=== PATIENT | female | born 1990 | race Caucasian/White ===

== ENCOUNTER 2017-03-25 20:51 | Emergency (ER) | payer OTHER ==
[~2017-03-25] VITALS: Ht 170.2 cm; Wt 57.9 kg
[~2017-03-25 20:51] MED LIST: FERR325T51 PO; OXYC2.5T3 PO; SERT50TA PO; bcp PO
[2017-03-25 20:53] VITALS: TEMP 36.8; Ht 170.2 cm; Wt 57.9 kg
[2017-03-25] MEDS ORDERED: LEVO1IUD2 INT UTER (22:26)
[2017-03-25 23:07] LABS: BASO % 0.4 %; BASO ABS # 0.05 K/uL (0-0.2); EOS % 6.2 %; HEMATOCRIT 41.8 % (37-47); HEMOGLOBIN 14.2 g/dL (12.0-16.0); IG# 0.02 K/uL (0.00-0.02); LYMPH % 33.2 %; LYMPH ABS # 3.74 K/uL (1.2-3.4); MEAN CELL VOLUME 90.5 fL (80-100); MEAN CORPUSCULAR HEMOGLOBIN 30.7 pg (25-34); MEAN PLATELET VOLUME 11.1 fL (7.4-10.4); MONO % 7.4 %; MONO ABS # 0.83 K/uL (0.11-0.59); NEUT % 52.6 %; NEUT ABS # 5.94 K/uL (1.4-6.5); PLATELET COUNT 263 K/uL (130-400); RED CELL DISTRIBUTION WIDTH CV 13.7 % (11.5-14.5); RED CELL DISTRIBUTION WIDTH SD 45.5 fL (36.4-46.3); WHITE BLOOD COUNT 11.28 K/uL (4.8-10.8)
[2017-03-25 23:14] LABS: ALBUMIN 3.8 gm/dl (3.4-5.0); CALCIUM 9.5 mg/dl (8.5-10.1); CREATININE 0.66 mg/dl (0.60-1.20); POTASSIUM 3.2 mmol/L (3.5-5.1)
[2017-03-25 23:17] LABS: TOTAL PROTEIN 7.5 gm/dl (6.4-8.2)
--- NOTE | 2017-03-26 01:06 | EMERGENCY ROOM VISIT NOTE ---
History First contact with patient: 22:14 Chief Complaint: ABDOMINAL PAIN Stated Complaint: STOMACH AND SIDE PAINS Nursing Triage Summary: Pt complains of right upper and lower abdominal pain for 4 days. +nausea History of Present Illness The patient is a 26 year old female who presents to the Emergency Room with complaints of 3-4 day long history of abdominal pain. She states the pain is intermittent, worse with movement or stress, and improves with rest. She describes the pain as a stinging sensation in the RLQ, and states it has remained the same for the past 3-4 days, not improving or worsening. She does have history of oophorectomy related to ovarian cysts, but does not remember which ovary was removed. She does report history of ovarian cysts, but this feels differently. The pain is not affected by food or drink. She denies fever, chills, nausea, vomiting, diarrhea, constipation. Bowel movements have been normal. Her LMP was 02/06/17-02/10/17, but she does have a mirena. The patient is sexually active. She did contact her software development project manager, but was unable to be seen until April 13. She states she did not want to wait that long, so came here for evaluation. Review of Systems A complete 10 point review of systems was reviewed with the patient with pertinent positives and negatives as per history of present illness. All else were negative. Past Medical/Surgical History Unilateral oophorectomy Family History Diabetes mellitus FH: cancer Hypertension Social History Smoking Status: Current Some Day Smoker Alcohol Use: occasionally Marital Status: Housing Status: lives with family Occupation Status: employed Current/Historical Medications Scheduled Levonorgestrel (Iud) (Mirena), 20 MCG INT UTER UD Physical Exam Vital Signs Date Time Temp Pulse Resp B/P (MAP) Pulse Ox O2 Delivery O2 Flow Rate FiO2 03/26/17 00:22 71 18 113/57 97 Room Air 03/25/17 20:53 36.8 77 16 147/96 98 Room Air Physical Exam VITALS: Vitals are noted on the nurse's note and reviewed by myself. Vital signs stable. GENERAL: This is a 26 year old white female, in no acute distress, nondiaphoretic, well-developed well-nourished. SKIN: The skin was without rashes, erythema, edema, or bruising. There is no tenting of the skin. Capillary reflex less than 2 seconds. HEAD: Normocephalic atraumatic. EARS: External auditory canals clear, tympanic membranes pearly bailon without erythema or effusion bilaterally. EYES: Pupils equal round and reactive to light and accommodation. Conjunctivae without injection, sclerae without icterus. Extraocular movements intact. NOSE: Patent, turbinates without inflammation or discharge. No sinus tenderness. MOUTH: Mucous membranes moist. Tonsils are not enlarged. Pharynx without erythema or exudate. Uvula midline. Airway patent. Tongue does not deviate. NECK: Supple without nuchal rigidity. No lymphadenopathy. No thyromegaly. Cervical spine is nontender. No JVD. HEART: Regular rate and rhythm without murmurs gallops or rubs. LUNGS: Clear to auscultation bilaterally without wheezes, rales or rhonchi. No dullness to percussion. No retractions or accessory muscle use. ABDOMEN: Positive bowel sounds x 4. Normal tympanic percussion. Tenderness in the lower abdomen, R>L. Soft, without masses or organomegaly. Troncoso sign negative. No guarding or rebound tenderness. No CVA tenderness. MUSCULOSKELETAL: No muscle atrophy, erythema, or edema noted. Full range of motion without joint tenderness in all extremities. No tenderness to palpation. Normal gait. Strength 5/5 throughout. NEURO: Patient was alert and oriented to person place and time. Normal sensation to light and sharp touch. Deep tendon reflexes 2+ throughout. No focal neurological deficits. Medical Decision & Procedures ER Provider Diagnostic Interpretation: US pelvis and appendix, interpreted by myself and statrad: IUD present and in place. Small amount of fluid in the endometrial cavity. No complex lesion or torsion of the left ovary. Right oophorectomy. Appendix not visualized. Laboratory Results 03/25/17 22:38 Red Blood Count 4.62, Mean Corpuscular Volume 90.5, Mean Corpuscular Hemoglobin 30.7, Mean Corpuscular Hemoglobin Concent 34.0, Mean Platelet Volume 11.1, Neutrophils (%) (Auto) 52.6, Lymphocytes (%) (Auto) 33.2, Monocytes (%) (Auto) 7.4, Eosinophils (%) (Auto) 6.2, Basophils (%) (Auto) 0.4, Neutrophils # (Auto) 5.94, Lymphocytes # (Auto) 3.74, Monocytes # (Auto) 0.83, Eosinophils # (Auto) 0.70, Basophils # (Auto) 0.05 03/25/17 22:38 Test 03/25/17 22:38 White Blood Count 11.28 K/uL (4.8-10.8) Red Blood Count 4.62 M/uL (4.2-5.4) Hemoglobin 14.2 g/dL (12.0-16.0) Hematocrit 41.8 % (37-47) Mean Corpuscular Volume 90.5 fL (80-100) Mean Corpuscular Hemoglobin 30.7 pg (25-34) Mean Corpuscular Hemoglobin Concent 34.0 g/dl (32-36) Platelet Count 263 K/uL (130-400) Mean Platelet Volume 11.1 fL (7.4-10.4) Neutrophils (%) (Auto) 52.6 % Lymphocytes (%) (Auto) 33.2 % Monocytes (%) (Auto) 7.4 % Eosinophils (%) (Auto) 6.2 % Basophils (%) (Auto) 0.4 % Neutrophils # (Auto) 5.94 K/uL (1.4-6.5) Lymphocytes # (Auto) 3.74 K/uL (1.2-3.4) Monocytes # (Auto) 0.83 K/uL (0.11-0.59) Eosinophils # (Auto) 0.70 K/uL (0-0.5) Basophils # (Auto) 0.05 K/uL (0-0.2) RDW Standard Deviation 45.5 fL (36.4-46.3) RDW Coefficient of Variation 13.7 % (11.5-14.5) Immature Granulocyte % (Auto) 0.2 % Immature Granulocyte # (Auto) 0.02 K/uL (0.00-0.02) Anion Gap 8.0 mmol/L (3-11) Est Creatinine Clear Calc Drug Dose 118.1 ml/min Estimated GFR () 141.3 Estimated GFR (Non- 121.9 BUN/Creatinine Ratio 12.5 (10-20) Calcium Level 9.5 mg/dl (8.5-10.1) Total Bilirubin 0.5 mg/dl (0.2-1) Aspartate Amino Transf (AST/SGOT) 15 U/L (15-37) Alanine Aminotransferase (ALT/SGPT) 11 U/L (12-78) Alkaline Phosphatase 46 U/L (45-117) Total Protein 7.5 gm/dl (6.4-8.2) Albumin 3.8 gm/dl (3.4-5.0) Globulin 3.7 gm/dl (2.5-4.0) Albumin/Globulin Ratio 1.0 (0.9-2) Lipase 147 U/L (73-393) ED Course The patient was seen and evaluated as above. IV access obtained and labs drawn. Urine dipstick and test ordered and performed. I discussed potential workup with the patient at bedside. She is uncertain which ovary was removed and is concerned for possible gynecological problem vs. appendicitis. The patient is relatively thin, so decision made collectively to perform US vs. CT scan. US results reviewed. I discussed findings with the patient at bedside. I recommended CT scan to r/o appendicitis. The patient declines, despite discussion regarding risks associated with not performing scan and possible undiagnosed, untreated appendicitis. Discharge instructions reviewed, the patient was discharged home in good condition. Medical Decision This 26 year old female patient presents to the ED today complaining of intermittent pain x3-4 days. The pain has not changed in intensity, and has been consistent over the past few days. She denies any infectious symptoms including fever, but does report history of ovarian cysts. Initial UA was negative for blood or obvious signs of infection, so us pelvis and appendix ordered and performed. This test was reviewed with no obvious cause for the patient's symptoms. In the setting of the negative ultrasound, as well as slightly elevated WBC count, I did recommend CT scan of the abd/pelvis to r/o appendicitis. The patient declines this test as she has to sleep so she can get her children up and ready for school in the morning. I did discuss risks associated with refusing this test, including appendicitis, abscess, infection, sepsis, and and the patient verbalizes understanding and continues to decline further testing. She was given strict return precautions and discharge instructions. Etiologies such as appendicitis, diverticulitis, obstruction, inflammatory bowel disease, renal colic, PUD, biliary pathology, pancreatitis, mesenteric ischemia, aortic pathology, infections, genitourinary, nephrolithiasis, ovarian torsion, ovarian cyst, UTI, perforated viscus, as well as others were entertained. Impression Primary Impression: Right lower quadrant abdominal pain Departure Information Dispostion Home / Self-Care Condition GOOD Referrals No Doctor, Assigned (PCP) Patient Instructions ED Abdominal Pain Unkn Cause, [facility] Additional Instructions You have been treated in the Emergency Department your Abdominal Pain. Laboratory studies and ultrasound of the pelvis and appendix were ordered, but were unclear as to the exact cause of your pain. As discussed, I did recommend a CT scan of the abdomen to rule out appendicitis, with the slightly elevated WBC count, however you did decline this test here in the ED. I do recommend close follow-up outpatient with your PCP in 1-2 days as well as return to the ED for any worsening symptoms or systemic symptoms. For pain control, you can use the following [id number] medicines (if >12 yo): Ibuprofen(Motrin, Advil) may be used for fever or pain. Use 600mg every six hours as needed. Take with food. Avoid using more than 2400mg in a 24 hour period. Do not use 2400mg per day for more than three consecutive days without physician direction. Prolonged inappropriate use can lead to stomach upset or ulcers. (AND/OR) Acetaminophen(Tylenol) may be used for fever or pain. Use 1000mg every six hours as needed. Avoid using more than 3000mg in a 24 hour period. Drink plenty of water and stay well hydrated. As with any trip to the Emergency Department, you should follow-up with your Primary Care Provider from today's visit. Return to the emergency department if your symptoms persist despite treatment plan outlined above or if the following symptoms occur: increased fevers, chills , worsening nausea/vomiting, blood in your stool or urine.
[2017-03-26 01:11] VITALS: BP 121/64; PULSE 79; O2SAT 98
--- NOTE | 2017-03-26 06:56 | DIAGNOSTIC IMAGING REPORT ---
EXAMINATION: PELVIC ULTRASOUND (transabdominal and endovaginal scanning) CLINICAL HISTORY: RLQ abdominal pain COMPARISON STUDY: 02/12/2015 FINDINGS: The uterus measured 8 x 3.6 x 5.4 cm. And IUD is visualized within the endometrial cavity.. The endometrial stripe measured 4 mm. There is minimal fluid within the endometrial canal.. The right ovary is surgically absent. The left ovary measured 44 x 24 x 35 mm. There is no ultrasonographic evidence of ovarian torsion. It should be noted that ovarian torsion can be present with normal Doppler ultrasonographic findings. There was no evidence of pathologic free pelvic fluid. IMPRESSION: 1. An IUD is visualized within the endometrial cavity 2. Small amount of fluid within the endometrial cavity 3. Ultrasonographically normal left ovary 4. Surgically absent right ovary Electronically signed by: Ricardo Root M.D. 03/26/2017 6:55 AM Dictated Date/Time: 03/26/2017 6:54 AM
--- NOTE | 2017-03-26 07:04 | DIAGNOSTIC IMAGING REPORT ---
APPENDIX ULTRASOUND HISTORY: Right lower quadrant abdominal pain. COMPARISON: None. FINDINGS: Transabdominal scanning of the right lower quadrant was performed. The appendix was not identified. There are no fluid collections or masses within the right lower quadrant. IMPRESSION: The appendix was not identified. Electronically signed by: Giovanni Koch M.D. 03/26/2017 7:02 AM Dictated Date/Time: 03/26/2017 7:02 AM
== END 2017-03-26 01:12 | disposition home or self-care (01) ==
LOC: C.EDB 20:52 → C.EDC 03-26 01:12
DX: R10.31 Right lower quadrant pain (principal); F17.200 Nicotine dependence, unspecified, uncomplicated; Z90.721 Acquired absence of ovaries, unilateral; Z83.3 Family history of diabetes mellitus; Z82.49 Family history of ischemic heart disease and other diseases of the circulatory system; Z97.5 Presence of (intrauterine) contraceptive device

== ENCOUNTER → 2017-03-26 | Outpatient (CLI) | payer OTHER ==
[~2017-03-26] MED LIST changes: -FERR325T51 PO; +LEVO1IUD2 INT UTER; +OPTIRAY 320 IV PRN; -OXYC2.5T3 PO; -SERT50TA PO; -bcp PO
--- NOTE | 2017-03-26 14:13 | DIAGNOSTIC IMAGING REPORT ---
CT OF THE ABDOMEN AND PELVIS WITH CONTRAST CLINICAL HISTORY: Right lower quadrant abdominal pain. Evaluate for acute appendicitis. COMPARISON STUDY: Appendix ultrasound and pelvic ultrasound March 25, 2017. TECHNIQUE: Following IV administration of 119 mL of Optiray-320, axial images of the abdomen and pelvis were obtained from the lung bases to the proximal femurs. Images were reviewed in the axial, sagittal, and coronal planes. IV contrast was administered without complication. A dose lowering technique was utilized adhering to the principles of ALARA. Oral contrast was administered. CT DOSE: 291.01 mGy.cm FINDINGS: A 5 mm lateral segment hepatic lesion is too small to characterize but is likely benign. The spleen, adrenal glands, kidneys and pancreas are normal. There is no biliary or pancreatic ductal dilatation. There is no peripancreatic or pericholecystic infiltration. There is no hydronephrosis or Starkweather ureter. Intrauterine device is in place. The caliber and wall thickness of small and large bowel are normal. The appendix is normal. Trace fluid within the pelvis is likely physiologic. No pneumatosis, free air or portal venous gas is present. There is a moderate amount of stool within the rectum. There is no evidence for a bowel obstruction. No suspicious osseous lesions are present. IMPRESSION: 1. No acute process within the abdomen or pelvis. Normal appendix. 2. Moderate amount stool within the rectum. No evidence for a bowel obstruction. 3. Small amount of fluid within the pelvis which is likely physiologic. 4. Intrauterine device in place. Electronically signed by: Rich Reed M.D. 03/26/2017 2:11 PM Dictated Date/Time: 03/26/2017 1:57 PM
== END | disposition home or self-care (01) ==
LOC: C.CTS 11:49
PROVIDERS: ATTEND Physician Assistant
DX: R10.31 Right lower quadrant pain (principal)

== ENCOUNTER 2023-01-21 09:57 | Inpatient (IN) ==
[2023-01-21] MEDS ORDERED: LIDOCAINE 1% LOCAL 20 ML VIAL INFIL PRN (10:26)
[2023-01-21] MEDS ORDERED: OXYTOCIN 30 UNITS/NSS 30 UNITS/500 ML BAG IV PRN ×3 (10:26→19:50)
[2023-01-21 11:31] LABS: Hematocrit (blood only) 37.9 % (37.0-47.0); Hemoglobin 12.9 g/dl (12.0-16.0); Mean Corpuscular Hemoglobin 29.7 pg (25.0-34.0); Mean Corpuscular Volume 87.3 fL (80.0-100.0); Mean Platelet Volume 13.5 fL (9.4-12.4); Platelet Count 125 K/uL (130-400); RDW Coefficient of Variation 13.9 % (11.5-14.5); RDW Standard Deviation 44.4 fL (36.4-46.3); Red Blood Count 4.34 M/uL (4.20-5.40); White Blood Count 10.24 K/ul (4.8-10.8)
--- NOTE | 2023-01-21 12:06 | History & Physical Report ---
Date of Service January 21, 2023 Assessment & Plan Admission and Anticipated Discharge Date Admission Date: January 21, 2023 History of Present Illness Chief Complaint: induction of labor Primary Care Provider: Mario Alberto Sellers MD 32 F [id number] at 39 weeks admitted for induction of labor for gestational diabetes on insulin. Blood sugars have been well controlled. GBS is negative. Allergies Allergy/AdvReac Type Severity Reaction Status Date / Time minocycline Allergy Unknown headaches; Verified 01/21/23 10:20 caused a pseudotumor cerebri cat dander Allergy Sneezing Verified 01/21/23 10:20 naproxen Allergy Headache Verified 01/21/23 10:20 Home Medications Medication Instructions Recorded Confirmed Type vits no.124-ferrous fum 1 tab PO DAILY 11/03/18 01/21/23 History 27 mg iron-folic acid 800 mcg tablet ( Vitamin) insulin detemir U-100 100 unit/mL 10 unit subcut DAILY 12/29/22 01/21/23 History (3 mL) subcutaneous pen (Levemir FlexPen) Patient History Medical History Gestational diabetes mellitus (GDM) insulin (spontaneous vaginal delivery) 2010,2012,2018 Abnormal cervical Papanicolaou smear Depression with anxiety Miscarriage (~2008) Pelvic pain Ovarian cyst Surgical History History of dental surgery H/O colposcopy with cervical biopsy History of right salpingo-oophorectomy Social History Smoking Status: Never smoker Second Hand Exposure: No; Do You Dip or Chew Tobacco: No; Hx Alcohol Use: No Hx Substance Use: No Preferred Language: [place] Communication Ability: Effective Court Clerk Required: No Beliefs That Will Affect Care: None marital status: Current Living Situation: Spouse Current Living Situation Comment: and three kids Other Information That Helps Us Care for You: No Feels Safe at Home: Yes Safety Concerns: Feels Safe At This Time Assistive Devices: Glasses 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/colposcopy Review of Systems All systems reviewed & are unremarkable except as noted in HPI & below Physical Exam Constitutional: WD/WN, vitals as above Eyes: PERRL, conjunctivae normal, anicteric sclerae Respiratory: normal respiratory effort, lungs clear to auscultation Cardiovascular: RRR, no murmur, no edema Musculoskeletal: Extremities: extremities normal to inspection Skin: no rashes, warm and dry Neurologic: patellar DTR's 2+ bilat, sensation intact Psychiatric: A+Ox3, euthymic affect Genitourinary: no vaginal lesions, no adnexal mass Manual OB Exam: + cervical dilation 2 cm and 3 cm, + cervical effacement 50% and + station high Cervix firm/posterior. EFW 7-8 lbs. Results & Data Vital Signs (Past 12 Hours) Vital Signs Temp Pulse Resp BP 01/21/23 10:39 90 112/75 01/21/23 10:18 36.8 C 18 01/21/23 10:08 109 H 152/86 H Laboratory Results Laboratory Results - last 48 hr 01/21/23 01/21/23 10:52 11:10 WBC 10.24 RBC 4.34 Hgb 12.9 Hct 37.9 MCV 87.3 MCH 29.7 MCHC 34.0 RDW Std Deviation 44.4 RDW Coeff of Flaco 13.9 Plt Count 125 L MPV 13.5 H POC Glucose 79 Code Status & VTE Plan VTE Prophylaxis Plan VTE Prophylaxis will be ordered: No Monitoring External Monitor Cat 1
[2023-01-21] MEDS: LACTATED RINGER'S 1,000 ML IV PRN ×2 (12:18→15:42)
--- OUTSIDE RECORDS SUMMARY | 2023-01-21 12:44 | External Medical Summary | Summary of Care ---
Author Name Unknown Organization [facility] Address [address] [facility] [place] [address] Phone [phone] Care Team Providers Care Director Private Music Therapy Agency Name Role Phone Geovanna Guadarrama MD Primary Care Prov ider Encounter Details Date Type Department Care Team (Late st Contact Info) Description 01/19/2023 Telephone [facility] [address] [place] [phone] Lester Hernandez MD [address] [place] [address] Allergies Active Allergy Reactions Criticality Noted Date Comments Cat Dander 10/07/2007 Minocycline High 09/19/2014 pseudotumor cerebri (2014) Naproxen Sodium 12/13/2017 Blurred vision headache documented as of this encounter (statuses as of 01/19/2023) Medications Medication Sig Dispensed Refills Start Date End Date Status Plus 27-1 MG Oral Tablet Take 1 Tablet by mouth in the morning. 100 Tablet 3 06/11/2022 Active Clindamycin Phosphate 1 % External GelIndications:Acne scarring,Acne vulgaris Apply as spot treatment to acne prone areas on face/neck/chest 2x daily 60 g 2 08/31/2022 Active UserVoiceTouch Verio Flex System w/Device Kit Use to test blood sugars 4 times daily (fasting, 1 hour after breakfast, lunch, and dinner) 1 Kit 0 11/06/2022 Active OneTouch Verio In Vitro Strip (Glucose Blood)Indications:Di et controlled gestational diabetes mellitus (GDM) in third trimester Use to test blood sugars 4 times daily (fasting, 1 hour after breakfast, lunch, and dinner) 200 Strip 6 11/12/2022 Active OneTouch Delica Lancets 30GIndications:Insul in controlled gestational diabetes mellitus (GDM) in third trimester Use to test blood sugars 4 times daily (fasting, 1 hour after breakfast, lunch, and dinner) 200 Each 6 12/10/2022 Active Levemir FlexTouch 100 UNIT/ML Subcutaneous Solution Pen-injector (Insulin Detemir)Indications: Insulin controlled gestational diabetes mellitus (GDM) in third trimester Inject 10 Units under the skin in the morning. 15 mL 2 12/10/2022 Active BD Pen Needle Mini U/F 31G X 5 MM (Insulin Pen Needle)Indications:I nsulin controlled gestational diabetes mellitus (GDM) in third trimester Use with insulin pen to inject insulin 200 Each 2 12/10/2022 Active documented as of this encounter (statuses as of 01/19/2023) Active Problems Problem Noted Date Diagnosed Date Insulin controlled gestation al diabetes mellitus (GDM) in third trimester 11/06/2022 Overview: Diagnosed at 27 weeks Nutrition consult ordered / completed earlier today 11/12/2022 Has UserVoiceTouch glucometer & supplies Lab Results Component Value Date/Time 50-G GESTATIONAL GLUCOSE, 1 HOUR - [facility] 179 (H) 11/03/2022 09:28 AM 100-G GESTATIONAL GLUCOSE, 1 HOUR - [facility] 185 (H) 11/05/2022 08:57 AM 100-G GESTATIONAL GLUCOSE, 2 HOUR - [facility] 158 (H) 11/05/2022 09:57 AM 100-G GESTATIONAL GLUCOSE, 3 HOUR - [facility] 109 11/05/2022 10:57 AM 100-G GESTATIONAL GLUCOSE, FASTING - [facility] 92 11/05/2022 07:53 AM 11/12/22: MFM ADAPT consult complete. Enrolled in Current Health. Instructions provided to report blood sugars each week for MFM review 11/18/22: RPM Stable overall; continue diet controlled 11/23/22: RPM reviewed. Stable overall. However, patient concerned that sugars have been increasing and reports symptoms. SM offering ADAPT follow-up to discuss medications. 11/25/22: ADAPT complete; elevated breakfast value due to cereal; discussed dietary changes; continue diet controlled 11/27/22: RPM Stable; continue diet controlled 12/03/22- Elevated sugars msg sent to COMMERCIAL LENDING ASSISTANT 12/03/22: RPM reviewed. Yesterday's readings all elevated, but today's readings are good. Will review again next week --KW 12/04/22: RPM some PP elevations; request food diary 12/08/22- PP elevations msg sent to COMMERCIAL LENDING ASSISTANT 12/08/22: recommend ADAPT FU for medication management; elevated PP values 12/08/22: ADAPT visit scheduled on 12/10/2022 12/10/22: ADAPT visit today. Patient had visit with nutrition yesterday. Pt states elevated PP's despite adhering to diet. Agreeable to starting AM dose of insulin. Levemir 10 units SQ prior to breakfast. Will review BG next week and adjust as needed. --KW 12/11/22: Reports started insulin today 12/17/22- stable 12/24/22-stable 01/01/23- stable 01/07/23- stable 01/15/23- stable Last Assessment & Plan: Working with ADAPT; recently started insulin. Anxiety during 11/03/2022 Overview: No meds - prior Cymbalta Family hx of melanoma 08/31/2022 Overview: Grandmother and aunt Supervision of high risk in third trim izzy 07/07/2022 Overview: ?bilobed placenta seen on u/s at 37w PTSD (post-traumatic stress disorder) 10/23/2021 Moderately severe recurrent major depression 02/2021 JENNIFER (generalized anxiety disorder) 10/23/2021 Breast mass, right 08/19/2021 History of abnormal cervical Pap smear 9 Overview: 03/2018- Pap LGSIL +HR HPV, found in early Family history of cardiac arrest 12/30/2017 Overview: Her mother at age 41, unknown etiology Acne 05/15/2014 ADVANCE DIRECTIVE INFORMATION 04/15/2012 Overview: No, Advance Directive brochure offered, patient declined. Allergic rhinitis 10/07/2007 Estimated Date of Delivery Comme nts Yes 01/28/2023 Based on last me nstrual period of 04/23/2022 (Exact Date) documented as of this encounter (statuses as of 01/19/2023) Resolved Problems Problem Noted Date Diagnosed Date Resolved Date LGA (large for gestational a ge) fetus affecting management of mother 12/25/2022 Overview: 91% with 33 completed weeks gestation 12/10/2022 12/25/2022 Supervision of high risk pre gnancy in third trimester 11/12/2022 11/27/2022 with 29 completed weeks gestation 11/12/2022 11/27/2022 Carrier of group B Streptococcus 11/02/2018 01/04/2019 Overview: +RV culture Renal pelviectasis 08/11/2018 Overview: renal pelviectasis seen on u/s for missed anatomy (at 25w). "Mild fullness of the renal pelvis, bilaterally. Consider follow-up ultrasound. Will get f/u sono locally at 34-36wks @ 36wks- Right renal pelvis dilated at 6.5mm; left normal. MFM reports >7mm as abnormal. Pt aware to make title specialist aware of findings after delivery. Supervision of other normal , antepartum 03/30/2018 11/25/2018 Overview: Problem Action Taken Date entered Entered by Date resolved Nutrition Provided due date letter for pt to attend WIC 03/30/2018 Analisa Alvarado, RN 03/30/2018 Problem Action Taken Date entered Entered by Date resolved Current needs or questions Patient denies having any current needs or questions 04/27/2018 Kennedi Gomez RN 04/27/2018 Problem Action Taken Date entered Entered by Date resolved Current needs or questions Patient denies having any current needs or questions 05/25/2018 Kennedi Gomez RN 05/25/2018 Problem Action Taken Date entered Entered by Date resolved Current needs or questions Patient denies having any current needs or questions 06/29/2018 Kennedi Gomez RN 06/29/2018 Problem Action Taken Date entered Entered by Date resolved Headache Increase fluids(non-caffeinated) Take 2 Tylenol according to the directions. Do not exceed 3 grams (3000mg) in 24 hours If persistent or severe, call your provider 07/27/2018 Analisa Alvarado RN 07/27/2018 Problem Action Taken Date entered Entered by Date resolved 3rd trimester 3rd trimeseter questions/education done 08/24/2018 Barbara Araujo RN 08/24/18 Breast feeding Pt plans on breast feeding-breast pump form given-will bring back with her to next visit with her coice 08/24/2018 Barbara Araujo RN 08/24/18 Problem Action Taken Date entered Entered by Date resolved Breast Pump Form completed and faxed to [employer] 09/07/2018 Barbara Araujo RN 09/07/18 Problem Action Taken Date entered Entered by Date resolved Pelvic pain or discomfort/General discomfort Reviewed comfort measures w/pt. Pt discussed w/provider 10/05/2018 Analisa Alvarado RN 10/05/2018 10/05/2018 Tdap Vaccine administered per clinic protocol. Pt given VIS(vaccine information sheet) Analisa Alvarado RN Problem Action Taken Date entered Entered by Date resolved Current needs or questions Patient denies having any current needs or questions 10/27/2018 Analisa Alvarado RN 10/27/2018 Pseudotumor cerebri 09/19/2014 10/17/19 16 Overview: [facility] (2015) Encounter for supervision of other normal 03/17/2012 10/13/2012 Overview: Patient given flu vaccine. 04/27/2012 Carlyn La RN Uterine size <dates @29wks- growth sono 1340gm (75%); FRIDA 23.4 ICD-10 update of inactive term Subchorionic hematoma 03/17/20122012 Overview: Single living IUP with an estimated gestational age of 10 weeks, 5 days. Slight decrease in size of the inferior subchorionic hematoma. Smaller and superiorly located subchorionic hematoma, either new or more conspicuous compared to the prior examination. Concerning for small gestational syndrome. Followup sonogram in approximately 2 weeks is again recommended. There are 2 sm subchorionic hemorrhages. The more caudal measures 20 x 10 x 32 mm (was 19 x 8 x 7 mm), larger. The other more superiorly measures 25 x 17 x 21 mm (was 8 x 6 x 8 mm), increased in size. Right ovarian cyst is smaller, currently 33 x 29 x 35 mm (was 43 x 23 x 22 mm). Had normal f/u with MFM 04/15/12. Proteinuria 06/02/2010 01/21/2011 Overview: 2-3+ protein on urine dip at first 2 OB visits. Baseline 24hr urine protein and labs ordered. 05/30/10: Labs WNL, urine protein 0.082 Ob Alberto Marie HBP 04/30/201010/2012 Backache 10/07/2007 06/18/2020 Other allergic rhinitis 09/23 Overview: ICD-10 update of inactive term Depression with anxiety 02/2021 Overview: Was prescribed Prozac by PCP but has not started it. She is feeling well and desires to not take any medications during documented as of this encounter (statuses as of 01/19/2023) Immunizations Name Administration Dates Next Due HPV Vaccine, 4-Valent 02/04/2009,01/05/2007,10/23 Seasonal Influenza, Split, I IV3, With Preserve, Inj 04/27/2012,12/30/2010 TD, Preservative Free 10/13/2001 TDAP (age 10 and older)(Boostrix) 11/03/2022, TDAP (age 11 and older)(Adacel) 12/30/2010 Varicella Vaccine (Chicken Pox) 01/29/2006,12/15 documented as of this encounter Social History Tobacco Use Types Packs/Day Years Used Date Smoking Tobacco: Former Cigarettes 0.3 1 Smokeless Tobacco: Never Comments:Quit 2009 Alcohol Use Standard Drinks/Week Comments No 0 (1 standard drink = 0.6 oz pur e alcohol) occ AUDIT-C Answer Date Recorded Frequency of Alcohol Consumption Never 03/30/2018 Average Number of Drinks Not on file 019 Frequency of Binge Drinking Not on file 07/2018 PHQ-2 Answer Date Recorded PHQ Adult Total Score 0 07/01/2021 Hunger Vital Sign Answer Date Recorded Within the past 12 months, y ou worried that your food would run out before you got the money to buy more. Never true 06/11/19 23 Within the past 12 months, t he food you bought just didn't last and you didn't have money to get more. Never true 06/10/2022 [place] Depression Scale Answer Date Recorded [place] Depression Scale Total 9 11/03/2022 The thought of harming myself has occurred to me . Never 11/03/2022 Estimated Date of Delivery Comme nts Yes 01/28/2023 Based on last me nstrual period of 04/23/2022 (Exact Date) Sex and Gender Information Value Date Recorded Sex Assigned at Female 07/01/2021 3:26 PM EDT Gender Identity Female 07/01/2021 3:26 PM EDT Sexual Orientation Straight 07/01/2021 3: 26 PM EDT Job Start Date Occupation Industry Not on file Not on file Not on file documented as of this encounter Miscellaneous Notes * Telephone Encounter - Kennedi Gomez RN - 01/19/2023 1:56 PM EST Pt called the office. Was in this am and was told if ctx every 10 min and getting more intense to start to hospital and call on her way. She is having ctx every 8-10 min. Some are more intense then others but regular. Her last labor was 1 hour after her water broke and her one prior to that was 2 hours. She [address] Hernandez, pt to come to L&D. Pt aware and is on her way. L&D aware. documented in this encounter Plan of Treatment Upcoming Encounters Date Type Department Care Team (Late st Contact Info) Description 09/01/2023 1:20 PM EDT Office Visit Dermatology [address] [place] [phone] Amanda Benjamin PA-C [address] [place] [address] [place] [phone] Health Maintenance Due Date Last Done Comments Hepatitis B (1 of 3 - 3-dose series) 1990 COVID-19 Vaccine (#1) 1990 Depression Screening 07/01/2022 07/01/2021 Influenza Vaccine (FLU shot) (#1) 2022 04/27/2012, 12/30/2010 Pap Smear 06/10/2025 06/10/2022, 08/23, 03/30/2018, Additional history exists Cervical Cancer Screening 06/11/2027 HPV/Co-Test 06/11/2027 06/10/2022 DTaP,Tdap,and Td Vaccines (5 - Td or Tdap) 11/03/2032 11/03/2022, 10/05/2018, 12/30/2010, Additional history exists GARDASIL-HPV IMMUNIZATION SERIES Completed 02/04/2009, 01/05/2007, 11/02/2006 MENINGOCOCCAL (MENACTRA/MENVEO) Aged Out No longer eligible based on patient's age to complete this topic Pneumococcal Vaccine: Pediatrics (0 to 5 Years) and At-Risk Patients (6 to 64 Years) Aged Out No longer eligible based on patient's age to complete this topic documented as of this encounter Medical Devices Not on filedocumented as of this encounter Advance Directives Latest Code Status on File Code Status Date Activated Date Inactivated Comments Full Code 08/19/2021 8:24 AM 08/19/2021 3:03 PM This order reflects the patients wishes and were consensually agreed upon. Care Teams Director Private Music Therapy Agency Relationship Specialty Start Date End Date Geovanna Guadarrama MD [address] [place] [address] [place] [phone] PCP - General Family Medicine 01/27/18 documented as of this encounter
--- OUTSIDE RECORDS SUMMARY | 2023-01-21 12:44 | External Medical Summary | Summary of Care ---
Author Name Unknown Organization [facility] Address [address] [place] [address] Phone [phone] Care Team Providers Care Waterfront Director Name Role Phone Geovanna Guadarrama MD Primary Care Prov ider Reason for Visit * Reason Onset Date Comments Home Monitoring Orders Only 01/21/2023 Encounter Details Date Type Department Care Team (Late st Contact Info) Description 01/21/2023 Home Monitoring Curator [employer] Obstetrics Maternal [facility], [place] [address] [place], [place] [phone] Iliana Webb CRNP [address], [place] [phone] Insulin controlled gestational diabetes mellitus (GDM) in third trimester* Allergies Active Allergy Reactions Criticality Noted Date Comments Cat Dander 10/07/2007 Minocycline High 09/19/2014 pseudotumor cerebri (2014) Naproxen Sodium 12/13/2017 Blurred vision headache documented as of this encounter (statuses as of 01/21/2023) Medications Medication Sig Dispensed Refills Start Date End Date Status Plus 27-1 MG Oral Tablet Take 1 Tablet by mouth in the morning. 100 Tablet 3 06/11/2022 Active Clindamycin Phosphate 1 % External GelIndications:Acne scarring,Acne vulgaris Apply as spot treatment to acne prone areas on face/neck/chest 2x daily 60 g 2 08/31/2022 Active OneTouch Verio Flex System w/Device Kit Use to test blood sugars 4 times daily (fasting, 1 hour after breakfast, lunch, and dinner) 1 Kit 0 11/06/2022 Active TradeBriefsTouch Verio In Vitro Strip (Glucose Blood)Indications:Di et controlled gestational diabetes mellitus (GDM) in third trimester Use to test blood sugars 4 times daily (fasting, 1 hour after breakfast, lunch, and dinner) 200 Strip 6 11/12/2022 Active TradeBriefsTouch Delica Lancets 30GIndications:Insul in controlled gestational diabetes [...] as of this encounter (statuses as of 01/21/2023) Active Problems Problem Noted Date Diagnosed Date Insulin controlled gestation al diabetes mellitus (GDM) in third trimester 11/06/2022 Overview: Diagnosed at 27 weeks Nutrition consult ordered / completed earlier today 11/12/2022 Has [employer] glucometer & supplies Lab Results Component Value [...] SM offering ADAPT follow-up to discuss medications. 10/04/23: ADAPT complete; elevated breakfast value due to cereal; discussed dietary changes; continue diet controlled 11/27/22: RPM Stable; continue diet controlled 12/03/22- Elevated sugars msg sent to SUPERVISOR HARVESTING 12/03/22: RPM reviewed. Yesterday's readings all elevated, but today's readings are good. Will review again next week --KW 12/04/22: RPM some PP elevations; request food diary 12/08/22- PP elevations msg sent to SUPERVISOR HARVESTING 12/08/22: recommend ADAPT FU for medication management; [...] as of this encounter (statuses as of 01/21/2023) Resolved Problems Problem Noted Date Diagnosed Date Resolved Date LGA (large for gestational a ge) fetus affecting management of mother 12/25/2022 Overview: 91% with 33 completed weeks gestation 12/10/2022 12/25/2022 Supervision of high risk pre gnancy in third trimester 11/12/2022 11/27/2022 with 29 completed weeks gestation 11/12/2022 11/27/2022 Carrier of group B Streptococcus 11/02/2018 01/04/2019 Overview: +RV culture Renal pelviectasis 08/11/2018 3 Overview: renal pelviectasis seen on u/s for missed anatomy (at 25w). "Mild fullness of the renal pelvis, bilaterally. Consider follow-up ultrasound. Will get f/u sono locally at 34-36wks @ 36wks- Right renal pelvis dilated at 6.5mm; left normal. MFM reports >7mm as abnormal. Pt aware to make poke in aware of findings after delivery. Supervision of other normal , antepartum 03/30/2018 11/25/2018 Overview: Problem Action Taken Date entered Entered by Date resolved Nutrition Provided due date letter for pt to attend WIC 03/30/2018 Analisa Alvarado, [place] 03/30/2018 Problem Action Taken Date entered Entered [...] Breast Pump Form completed and faxed to [facility] 09/07/2018 Barbara Araujo RN 09/07/18 Problem Action [...] 10/27/2018 Pseudotumor cerebri 09/19/2014 10/17/19 16 Overview: [facility] (2015) Encounter for supervision of other normal [...] as of this encounter (statuses as of 01/21/2023) Immunizations Name Administration Dates Next Due HPV [...] money to get more. Never true 06/10/2022 [place] Depression Scale Answer Date Recorded [place] Depression Scale Total 9 11/03/2022 The thought [...] on file documented as of this encounter Progress Notes * Janelle Gamboa RN - 01/21/2023 8:37 AM EST Patient has been discharged from [facility] Diabetes in Home Monitoring Program - Delivery Date 01/21/2023 Mirna Gamboa RN MSN Clinical [place] Dressing Room Attendant documented in this encounter Plan of Treatment Upcoming Encounters Date Type Department Care Team (Late st Contact Info) Description 09/01/2023 1:20 PM EDT Office Visit Dermatology [address] [place] [phone] Amanda Benjamin PA-C [address] [place] [address] [place] [phone] Health Maintenance Due Date Last Done Comments Hepatitis B (1 of 3 - 3-dose series) 1990 COVID-19 Vaccine (#1) 1990 Depression Screening 07/01/2022 07/01/2021 Influenza Vaccine (FLU shot) (#1) 2022 04/27/2012, 12/30/2010 Pap Smear 06/10/2025 06/10/2022, 07/09/2019, 03/30/2018, Additional history exists Cervical Cancer Screening [...] Not on filedocumented as of this encounter Visit Diagnoses Diagnosis Insulin controlled gestational diabetes mellitus (GDM) in third trimester- Primary documented in this encounter Advance Directives Latest Code Status on File Code Status Date Activated Date Inactivated Comments Full Code 08/19/2021 8:24 AM 08/19/2021 3:03 PM This order reflects the patients wishes and were consensually agreed upon. Care Teams Waterfront Director Relationship Specialty Start Date End Date Geovanna Guadarrama MD [address] [place] [address] [place] [phone] PCP - General Family Medicine 01/27/18 documented as of this encounter
[2023-01-21] MEDS ORDERED: ePHEDrine sulfate 50 MG/ML AMP ONE (15:04)
[2023-01-21] MEDS ORDERED: fentaNYL citrate PF 100 MCG/2 ML VIAL ONE (15:04)
[2023-01-21] MEDS ORDERED: fentANYL 2 MCG/ML BUPIVacaine 0.125%-NSS 100ML BAG ONE (15:04)
[2023-01-21] MEDS ORDERED: SODIUM CHLORIDE 0.9% PF INJ 10 ML VIAL ONE (15:04)
[2023-01-21] MEDS ORDERED: LIDOCAINE 2%/EPINEPHRINE 1:200,000 20 ML PF ONE (15:05)
[2023-01-21] MEDS ORDERED: BUPIVACAINE 0.25% PF 30 ML VIAL ONE (15:05)
[2023-01-21] MEDS ORDERED: NALOXONE HCL 1 MG in SODIUM CHLORIDE 0.9% 1,000 ML IV PRN (16:08)
[2023-01-21] MEDS ORDERED: fentANYL 2 MCG/ML BUPIVacaine 0.125%-NSS 100ML BAG EPI PRN (16:08)
[2023-01-21] MEDS ORDERED: NALOXONE HCL 0.4 MG/1 ML VIAL/CARP IV PRN (16:08)
[2023-01-21] MEDS ORDERED: diphenhydrAMINE 50 MG/ML VIAL IV PRN (16:08)
[2023-01-21] MEDS ORDERED: BUPIVACAINE 0.25% PF 30 ML VIAL EPI PRN (16:08)
[2023-01-21] MEDS ORDERED: SODIUM CHLORIDE 0.9% PF INJ 10 ML VIAL EPI PRN (16:08)
[2023-01-21] MEDS ORDERED: NALBUPHINE HCL 5 MG in SYRINGE 0 ML IV PRN (16:08)
[2023-01-21] MEDS ORDERED: ONDANSETRON INJ 2 MG/ML 2 ML VIAL IV PRN (16:08)
[2023-01-21] MEDS ORDERED: LIDOCAINE 2%/EPINEPHRINE 1:200,000 20 ML PF EPI STA (16:08)
[2023-01-21] MEDS ORDERED: BUPIVACAINE 0.25% PF 30 ML VIAL EPI STA (16:08)
[2023-01-21] MEDS ORDERED: ePHEDrine sulfate 50 MG/ML AMP IV PRN (16:08)
[2023-01-21] MEDS ORDERED: fentaNYL citrate PF 100 MCG/2 ML VIAL EPI PRN (16:08)
[2023-01-21] MEDS ORDERED: fentaNYL citrate PF 100 MCG/2 ML VIAL EPI STA (16:08)
[2023-01-21] MEDS ORDERED: SODIUM CHLORIDE 0.9% PF INJ 10 ML VIAL EPI STA (16:08)
[2023-01-21] MEDS ORDERED: LIDOCAINE 2% MPF LOCAL 5 ML VIAL EPI PRN (16:08)
[2023-01-21] MEDS ORDERED: ROPIVACAINE 0.5% PF 5 MG/ML 20 ML VIAL EPI PRN (16:08)
--- NOTE | 2023-01-21 16:10 | Anesthesiology Consultation ---
Date of Service January 21, 2023 Assessment & Plan (1) Encounter for pre-operative examination: Chart Review Chart Review: Patient NOT seen in Pre Admission Testing and Acceptable Risk for Labor Epidural Consults Requested none History Height/Weight Height: 5 ft 7 in Weight: 78.471 kg Allergies Allergy/AdvReac Type Severity Reaction Status Date / Time minocycline Allergy Unknown headaches; Verified 01/21/23 10:20 caused a pseudotumor cerebri cat dander Allergy Sneezing Verified 01/21/23 10:20 naproxen Allergy Headache Verified 01/21/23 10:20 Medications Home Medications Medication Instructions Recorded Confirmed Last Taken vits no.124-ferrous fum 1 tab PO DAILY 11/03/18 01/21/23 01/20/23 27 mg iron-folic acid 800 mcg tablet ( Vitamin) insulin detemir U-100 100 unit/mL 10 unit subcut DAILY 12/29/22 01/21/23 01/21/23 05:20 (3 mL) subcutaneous pen (Levemir FlexPen) Active Medications Generic Name Dose Route Start Last Admin Trade Name Freq PRN Reason Stop Dose Admin Lactated Ringer's 1,000 mls @ 125 mls/hr 01/21/23 10:26 01/21/23 15:43 Lr IV 01/23/23 10:25 Infused .Q8H PRN Infusion L&D Protocol Protocol Oxytocin 30 units in 500 mls @ 9 mls/hr 01/21/23 11:54 01/21/23 14:36 Pitocin 30 Units/Nss IV 01/23/23 11:53 0.54 units/hr .Q24H PRN 9 mls/hr Labor Induction/Augmentation Titration Protocol 0.54 UNITS/HR Past Medical History Medical History (Updated 01/21/23 @ 16:10 by Gonsalo Cummings MD) Encounter for pre-operative examination Gestational diabetes mellitus (GDM) insulin (spontaneous vaginal delivery) 2010,2012,2018 Abnormal cervical Papanicolaou smear Depression with anxiety Miscarriage (~2008) Pelvic pain Ovarian cyst Exercise / Class Metabolic Activity II 4-5 Yardwork/Stairs/Walk up hill Past Surgical History Surgical History History of dental surgery H/O colposcopy with cervical biopsy History of right salpingo-oophorectomy Social History Smoking Status: Never smoker tobacco type: cigarettes Do You Dip or Chew Tobacco: No Hx Alcohol Use: No Hx Substance Use: No substance use type: does not use Physical Exam Vital Signs Last Vital Signs Temp 36.6 C 01/21/23 14:35 Pulse 95 H 01/21/23 16:28 Resp 18 01/21/23 14:35 BP 114/69 01/21/23 16:28 Pulse Ox 99 01/21/23 16:25 Testing Laboratory Results 01/21/23 11:10 01/21/23 10:52 POC Glucose 79
--- NOTE | 2023-01-21 17:33 | Labor Progress Brief Note ---
Date of Service January 21, 2023 Assessment & Plan Admission and Anticipated Discharge Date Admission Date: January 21, 2023 Physical Exam Genitourinary: Manual OB Exam: + cervical dilation 4 cm and 5 cm, + cervical effacement 60%, + station -2 and + amniotic fluid clear OB Exam Monitor Tracing: + external FHT monitor used, + external uterine monitor used, + category I and + normal FHT variability AROM with Amni-hook clear fluid Results & Data Vital Signs (Past 12 Hours) Vital Signs Temp Pulse Resp BP Pulse Ox 01/21/23 17:30 97 H 86 L 01/21/23 17:29 103 H 128/65 01/21/23 17:25 88 98 01/21/23 17:24 82 109/55 L 01/21/23 17:20 99 01/21/23 17:20 89 01/21/23 17:20 81 105/59 L 01/21/23 17:15 81 98 01/21/23 17:14 85 102/55 L 01/21/23 17:10 91 H 98 01/21/23 17:09 93 H 101/66 01/21/23 17:05 98 01/21/23 17:05 87 01/21/23 17:05 83 101/57 L 01/21/23 17:00 94 H 98 01/21/23 16:59 101 H 104/60 01/21/23 16:55 90 97 01/21/23 16:54 90 110/61 01/21/23 16:50 92 H 98 01/21/23 16:48 92 H 103/59 L 01/21/23 16:46 84 104/55 L 01/21/23 16:45 92 H 98 01/21/23 16:44 104 H 100/53 L 01/21/23 16:42 91 H 101/56 L 01/21/23 16:40 99 H 95/51 L 98 01/21/23 16:38 87 92/60 L 01/21/23 16:36 90 110/59 L 01/21/23 16:35 93 H 98 01/21/23 16:34 88 107/58 L 01/21/23 16:32 110 H 110/61 01/21/23 16:30 99 01/21/23 16:30 92 H 01/21/23 16:30 96 H 118/62 01/21/23 16:28 95 H 114/69 01/21/23 16:25 95 H 99 01/21/23 16:20 101 H 100 01/21/23 16:15 111 H 100 01/21/23 16:10 100 01/21/23 16:10 87 01/21/23 16:10 88 130/76 01/21/23 15:25 80 122/75 01/21/23 14:35 18 01/21/23 14:35 36.6 C 18 01/21/23 14:24 88 111/77 01/21/23 13:23 81 115/70 01/21/23 12:18 84 108/64 01/21/23 11:00 36.9 C 20 01/21/23 10:39 90 112/75 01/21/23 10:18 36.8 C 18 01/21/23 10:08 109 H 152/86 H
[2023-01-21] MEDS ORDERED: bisacodyL 10 MG SUPP PR PRN (19:50)
[2023-01-21] MEDS ORDERED: HYDROCORTISONE ACETATE 25 MG SUPP PR PRN (19:50)
[2023-01-21] MEDS ORDERED: DIPHTHERIA/TETANUS/PERTUSSIS Vaccine (Tdap, Age 7+yrs) 0.5mL SYR/VL IM ONE (19:50)
[2023-01-21] MEDS ORDERED: BENZOCAINE 20% SPRY 85 APPLN/85 GM CAN EXT PRN (19:50)
--- NOTE | 2023-01-21 19:53 | Delivery Summary ---
Vaginal Delivery Summary Date of Service January 21, 2023 Vaginal Delivery Summary live male TADEO over intact perineum with delayed cord clamping and Apgars 8/9 weight pending. Cord blood obtained followed by spontaneous delivery of intact placenta. No tears. Bladder emptied for 100 ml. urine. Final sponge and instrument count correct. EBL 150 ml. mom and baby stable.
--- NOTE | 2023-01-21 20:03 | Anesthesia Procedure Note ---
Date of Service January 21, 2023 Anesthesia Post Epidural Note Vital Signs Vital Signs: Temp Pulse Resp BP Pulse Ox 36.7 C 90 18 121/60 98 01/21/23 19:00 01/21/23 19:58 01/21/23 19:00 01/21/23 19:58 01/21/23 19:45 Notes Mental Status: alert / awake / arousable and participated in evaluation Patient Amnestic to Procedure: No Nausea / Vomiting: adequately controlled Pain: adequately controlled Airway Patency, RR, SpO2: stable & adequate BP & HR: stable & adequate Hydration State: stable & adequate Neuraxial Anesthesia: was administered and sensory block is resolving Anesthetic Complications: no major complications apparent and Pt Satisfied with anesthetic care Epidural: Removed without complications and With tip intact
[2023-01-21] MEDS: DOCUSATE SODIUM 100 MG CAP PO SCH (21:13)
[2023-01-21] MEDS: IBUPROFEN 600 MG TAB PO PRN (22:33)
[2023-01-22] MEDS: ACETAMINOPHEN 325 MG TAB PO PRN ×3 (00:55→18:52)
[2023-01-22 06:41] LABS: Hematocrit (blood only) 34.4 % (37.0-47.0); Hemoglobin 11.6 g/dl (12.0-16.0); Mean Corpuscular Hemoglobin 29.6 pg (25.0-34.0); Mean Corpuscular Hgb Conc 33.7 g/dL (32.0-36.0); Mean Corpuscular Volume 87.8 fL (80.0-100.0); Mean Platelet Volume 13.6 fL (9.4-12.4); Platelet Count 110 K/uL (130-400); RDW Coefficient of Variation 14.2 % (11.5-14.5); RDW Standard Deviation 45.1 fL (36.4-46.3); Red Blood Count 3.92 M/uL (4.20-5.40)
[2023-01-22] MEDS: IBUPROFEN 600 MG TAB PO PRN ×3 (06:47→18:52)
[2023-01-22] MEDS ORDERED: PRENATAL VITAMIN 1 TAB PO SCH ×2 (08:00→09:00)
[2023-01-22] MEDS ORDERED: FERROUS SULFATE 325 MG TAB PO SCH (08:00)
[2023-01-22] MEDS: DOCUSATE SODIUM 100 MG CAP PO SCH (08:24)
--- NOTE | 2023-01-22 09:38 | Obstetrical Progress Note ---
Date of Service January 22, 2023 Assessment & Plan (1) Normal course: pt wishes to be discharged home today d/c home with instructions Results & Data Vital Signs (Past 12 Hours) Vital Signs Temp Pulse Pulse Pulse Resp BP BP 01/22/23 07:30 36.4 C L 66 18 111/75 01/22/23 03:00 36.7 C 70 18 105/67 01/21/23 22:30 36.8 C 91 H 18 122/68 01/21/23 21:58 91 H 122/68 01/21/23 21:56 87 113/61 01/21/23 21:45 36.8 C 18 01/21/23 21:43 93 H 108/57 L Pulse Ox O2 Del Method 01/22/23 07:30 Room Air 01/22/23 03:00 98 Room Air 01/21/23 22:30 98 Room Air 01/21/23 21:58 01/21/23 21:56 01/21/23 21:45 01/21/23 21:43
[2023-01-22] MEDS ORDERED: bisacodyL 5 MG TABEC PO SCH (20:00)
== END 2023-01-22 20:40 | disposition home or self-care (01) | DRG 807 ==
LOC: 4S1 09:57 → 4E1 23:25